=== PATIENT | male | born 1960 | race Caucasian/White ===

== ENCOUNTER 2024-06-11 07:32 | Emergency (ER) | payer SELFPAY ==
[2024-06-11] VITALS (12 sets, daily range): BP systolic 159–203; BP diastolic 87–120; BMI 32.6
--- NOTE | 2024-06-11 07:43 | ED.GENMED ---
History of Present Illness
General
Chief Complaint: Flank Pain
Time Seen by Provider: 06/11/24 07:43
History of Present Illness
History of Present Illness:
TIME OF INITIAL ENCOUNTER: 7:45 AM
HPI: The patient awoke with right flank pain that started around 4 hours ago. He has history of kidney stones. Prior kidney stones are always on the left side. He has had gross hematuria once in the past and does have gross hematuria today. He
has had no fevers.
EXAM:
GENERAL: Well appearing but appears somewhat uncomfortable
HEENT: Moist oral mucosa
CARDIOVASCULAR: No murmurs, normal heart rate, regular rhythm, No chest wall tenderness
PULMONARY: No respiratory distress, breath sounds are clear and equal
ABDOMEN: Soft with no peritoneal signs, no tenderness, mild right CVA tenderness
NEUROLOGIC: Excellent strength all extremities, no coordination deficits
PSYCHIATRIC: Appropriate mental status, normal insight and judgement
EXTREMITIES: Nontender, no edema, moves all extremities equally
SKIN: No rash, no lesions
NUMBER AND COMPLEXITY OF PROBLEMS ADDRESSED AT THE ENCOUNTER
� Chronic conditions affecting care: Kidney stones, has had migraines
� Acute Exacerbation and/or Progression of Chronic Illness: This is an acute problem
� Differential Diagnosis includes: Ureteral stone/colic, UTI, pyelonephritis
AMOUNT AND/OR COMPLEXITY OF DATA TO BE REVIEWED AND ANALYZED
� I performed an independent evaluation of and my interpretation is:
EKG:
CT: CT shows a distal right ureteral stone measuring 5 mm
X-rays:
Laboratory Studies: White count 10.7, creatinine 1.5/GFR 52
Other:
� Review of other/old records: No old records available for review in [facility].
� Clinical information was obtained by an independent historian: I spoke to at bedside
� Prescriptions/Medications Considered but not given:
� Further testing considered but not performed:
RISK OF COMPLICATIONS AND/OR MORBIDITY OR MORTALITY OF PATIENT MANAGEMENT
� Social determinants of health affecting care: Lives at home
� Discussion with other providers: Notify Dr. Dial agrees with close outpatient follow-up
� Escalation of care including admission/observation vs risk of discharge considered: The patient was given Toradol, Zofran, and fluids initially.
ANY OTHER UPDATES:
10:30 AM: The patient overall felt improved after Toradol given however will limit further NSAIDs as he does has borderline renal insufficiency. 5 mm distal ureteral stone noted. Questionable UTI, will start antibiotics. Will give a dose of
Percocet prior to discharge.
Phy Exam
Physical Exam
Physical Exam:
See HPI
Course
Orders/Labs/Results
Orders:
Orders
06/11/24 07:58
CT Abd/pel Without Iv Or Oral Urgent
Comment:
Reason For Exam: acute R flank pain gross hematuria
0.9% Sodium Chloride 1000 ml [Nss] 1,000 ml IV BOLUS
Ketorolac [Toradol] 15 mg IV NOW STA
Ondansetron Injectable [Zofran] 4 mg IV NOW STA
06/11/24 08:07
Complete Blood Count/With Diff Urgent
Comprehensive Metabolic Panel Urgent
Urinalysis Reflex To Culture Urgent
Date Specimen was Collected: 06/11/24
Time Specimen was Collected: 07:58
Urine Microscopic Reflex Cult Urgent
Urine Culture Urgent
VERONICA Source: U
Specimen Description:
Date Specimen was Collected: 06/11/24
Time Specimen was Collected: 07:58
06/11/24 08:14
HYDROmorphone [Dilaudid] 1 mg IV NOW STA
06/11/24 10:29
Cephalexin Monohydrate [Keflex] 500 mg PO NOW STA
06/11/24 10:54
Oxycodone/Acetaminophen [Percocet 5/325] 2 tablet PO NOW STA
Abnormal Lab Results
06/11/24
08:07
Abs Immat Gran (auto) 0.1 H 10^3/uL
(0-0.05)
Absolute Neuts (auto) 7.0 H 10^3/uL
(1.4-6.5)
Absolute Monos (auto) 1.1 H 10^3/uL
(0.1-0.6)
Monocytes % 10.2 H %
(1.7-9.3)
Creatinine 1.5 H mg/dL
(0.7-1.3)
Glucose 128 H mg/dl
(70-99)
Urine Ketones Trace A
(Negative)
Ur Occult Blood Reflex 4+ A
(Negative)
Urine Nitrite (Reflex) Positive A
(Negative)
Urine Bilirubin 1+ A
(Negative)
Leukocyte Esterase Rfl 1+ A
(Negative)
Urine RBC >100 A /HPF
(0-2)
Urine Bacteria (Reflex) Moderate A
(Negative)
Urine Albumin (Reflex) 2+ A
(Neg - Trace)
06/11/24 08:07
06/11/24 08:07
Vital Signs
Initial and Last Documented VS:
Initial Vital Signs
Temp Pulse Resp BP Pulse Ox
36.5 C 93 16 203/120 98
06/11/24 07:39 06/11/24 07:39 06/11/24 07:39 06/11/24 07:39 06/11/24 07:39
Last Documented Vital Signs
Temp Pulse Resp BP Pulse Ox
36.4 C 77 16 162/87 94
06/11/24 08:14 06/11/24 09:15 06/11/24 09:15 06/11/24 09:15 06/11/24 09:15
*Critical Care Note
Total Time (30-74mins, 75-104mins- exclusive of procedures): Not Applicable
ED Attending Note
-
Portions of this chart may have been created with voice recognition software.� Occasional wrong word or��sound alike� substitutions may have occurred due to the inherent limitations of voice recognition software.
Discharge Plan
Departure
Patient Disposition: Home (Routine Discharge)
Date of Disposition: 06/11/24
Time of Disposition: 10:32
Patient with high blood pressure during this ER visit?: Yes
Discharge Problem:
Left ureteral stone
Instructions: Kidney Stones (DC), How to Strain Your Urine, BLOOD PRESSURE, Narcotic Pain Medication
Prescriptions:
New
oxycodone-acetaminophen [Percocet] 5-325 mg tablet
1 - 2 tab PO Q6HPRN PRN (Reason: pain) Qty: 14 0RF
ondansetron HCl 4 mg tablet
4 mg PO Q8H PRN (Reason: nausea and vomiting) Qty: 14 0RF
tamsulosin [Flomax] 0.4 mg capsule
0.4 mg PO DAILY Qty: 14 0RF
cephalexin 500 mg tablet
500 mg PO TID Qty: 21 0RF
Referrals:
NONE,* [Family Provider] -
Activity Restrictions/Additional Instructions:
You have a 5 mm stone in the far down down part of your right ureter. You do have a lot of blood on the urinalysis which is common with kidney stones. There is only questionable if any sign of infection. I am placing you on antibiotics in case
there truly is infection. Urine culture pending. Return here if developing fevers. I notified Dr. Dial, urologist�please follow-up with their office and call them on Thursday. Your kidney function is borderline impaired therefore limit the
amount of [id number] Motrin. I sent a prescription for narcotic to your pharmacy, nausea medicine, Flomax which may help promote stone passage, and antibiotic. If you take the narcotic, I recommend taking some like [id number] MiraLAX
to prevent constipation. Your blood pressure was very high when he first came in here which is partially related the pain however it remains elevated. I strongly recommend you follow-up with primary care doctor for reassessment.
Interventions
Interventions:
*Risk Screen - Suicide Last Done: 06/11/24 07:39
*General Assessment Last Done: 06/11/24 08:14
*Neglect/Abuse Screening Last Done: 06/11/24 07:39
ED- Fall Risk Assessment Last Done: 06/11/24 08:14
*ED COVID-19 Vaccine History Last Done: 06/11/24 08:14
CZ-Sjgiuc-Xulkyeohxp Assessment Last Done: 06/11/24 08:14
ED-Male Genitourinary Assessment Last Done: 06/11/24 08:14
Discharge Date and Time
Print Language: KOREAN
[2024-06-11] MEDS: NSS 1000 IV (08:09)
[2024-06-11] MEDS: TORADOL 15 MG IV (08:10)
[2024-06-11] MEDS: ZOFRAN 4 MG IV (08:10)
[2024-06-11 08:14] LABS: % Basophils 0.7 % (0-2); % Eosinophils 1.4 % (0-6); % Immature Granulocytes 0.5 % (0-0.5); % Monocytes 10.2 % (1.7-9.3); % Neutrophils 65.2 % (42.2-75.2); Absolute Basophils 0.1 10^3/uL (0-0.2); Absolute Eosinophils 0.2 10^3/uL (0-0.7); Absolute Immature Granulocytes 0.1 10^3/uL (0-0.05); Absolute Lymphocytes 2.4 10^3/uL (1.2-3.4); Absolute Monocytes 1.1 10^3/uL (0.1-0.6); Hematocrit 44.5 % (39.0-52.0); Hemoglobin 14.8 g/dL (13.0-18.0); Mean Corp Hgb Conc. 33.3 g/dL (33.0-37.0); Mean Corpuscular Hgb 28.4 pg (27.0-31.0); Mean Corpuscular Volume 85.2 fL (80.0-94.0); Mean Platelet Volume 9.7 fL (7.4-10.4); Nucleated Red Blood Cells % 0 % (-); Platelet Count 240 10^3/uL (130-400); Red Blood Cell Count 5.22 10^6/uL (4.70-6.10); Red Cell Dist. Width 13.1 % (11.5-14.5); White Blood Cell Count 10.7 10^3/uL (4.8-10.8)
[2024-06-11 08:38] LABS: ALT (SGPT) 19 U/L (0-50); AST (SGOT) 22 U/L (17-59); Albumin 4.8 g/dl (3.5-5.0); Alkaline Phosphatase 80 U/L (38-126); Blood Urea Nitrogen 20 mg/dl (9-20); Calcium 9.1 mg/dl (8.4-10.2); Carbon Dioxide 28 mmol/L (22-30); Chloride 101 mmol/L (98-107); Estimated Creatinine Clearance 65 ml/min; Glucose 128 mg/dl (70-99); Potassium 4.1 mmol/L (3.5-5.1); Sodium 140 mmol/L (135-145); Total Protein 7.7 g/dl (6.3-8.2); eGFR 52.31
[2024-06-11 08:40] LABS: Urine Albumin 2+ (Neg - Trace); Urine Bilirubin 1+ (Negative); Urine Character Very Cloudy (Clear); Urine Color Red; Urine Glucose Negative (Negative); Urine Ketone Trace (Negative); Urine Leukocyte 1+ (Negative); Urine Nitrite Positive (Negative); Urine Occult Blood 4+ (Negative); Urine Specific Gravity 1.025 (<1.030); Urine Urobilinogen 1+ (Neg - 1+)
[2024-06-11 08:55] LABS: Urine Bacteria Moderate (Negative); Urine Red Blood Cell >100 /HPF (0-2); Urine Squamous Cell None seen /LPF (Few); Urine White Cell 0-2 /HPF (0-5)
[2024-06-11] MEDS: KEFLEX 500 MG PO (10:51)
[2024-06-11] MEDS: PERCOCET 5/325 2 TABLET PO (10:57)
== END 2024-06-11 11:05 | disposition home or self-care (01) ==
LOC: EMR 07:32
PROVIDERS: EMERGENCY PHYSICIAN Emergency Medicine
DX: N20.1 Calculus of ureter (principal); R31.0 Gross hematuria; Z87.442 Personal history of urinary calculi
CPT/HCPCS: 99284; 96374; 96375; 96361; 74176; 80053; 81003; 81015; 85025; 87086

== ENCOUNTER 2024-07-12 15:25 | Emergency (ER) | payer BC, SELFPAY ==
[2024-07-12 15:44] VITALS: BP 163/108
[2024-07-12 16:06] LABS: % Basophils 0.7 % (0-2); % Eosinophils 2.1 % (0-6); % Immature Granulocytes 0.3 % (0-0.5); % Lymphocytes 38.4 % (20.5-51.1); % Monocytes 8.7 % (1.7-9.3); % Neutrophils 49.8 % (42.2-75.2); Absolute Basophils 0.1 10^3/uL (0-0.2); Absolute Eosinophils 0.1 10^3/uL (0-0.7); Absolute Lymphocytes 2.6 10^3/uL (1.2-3.4); Absolute Monocytes 0.6 10^3/uL (0.1-0.6); Absolute Neutrophils 3.4 10^3/uL (1.4-6.5); Hematocrit 43.1 % (39.0-52.0); Hemoglobin 14.3 g/dL (13.0-18.0); Mean Corp Hgb Conc. 33.2 g/dL (33.0-37.0); Mean Corpuscular Hgb 28.5 pg (27.0-31.0); Mean Corpuscular Volume 85.9 fL (80.0-94.0); Mean Platelet Volume 9.3 fL (7.4-10.4); Nucleated Red Blood Cells % 0 % (-); Platelet Count 222 10^3/uL (130-400); Red Blood Cell Count 5.02 10^6/uL (4.70-6.10); Red Cell Dist. Width 12.7 % (11.5-14.5); White Blood Cell Count 6.8 10^3/uL (4.8-10.8)
[2024-07-12 16:16] LABS: ALT (SGPT) 14 U/L (0-50); AST (SGOT) 17 U/L (17-59); Albumin 4.2 g/dl (3.5-5.0); Alkaline Phosphatase 70 U/L (38-126); Blood Urea Nitrogen 14 mg/dl (9-20); Calcium 9.7 mg/dl (8.4-10.2); Carbon Dioxide 31 mmol/L (22-30); Chloride 102 mmol/L (98-107); Glucose 111 mg/dl (70-99); Potassium 4.1 mmol/L (3.5-5.1); Sodium 139 mmol/L (135-145); Total Bilirubin 1.1 mg/dl (0.2-1.3); Total Protein 7.2 g/dl (6.3-8.2); eGFR > 60.00
--- NOTE | 2024-07-12 17:02 | ED.GENMED ---
History of Present Illness
General
Chief Complaint: Blood Pressure Problem
Time Seen by Provider: 07/12/24 16:57
History of Present Illness
History of Present Illness:
64-year-old male presents the emergency department for evaluation of elevated blood pressure. He states he has noted it to be elevated since the ER visit 1 month ago, purchased a home blood pressure monitor and is elevated but has not followed up
with a primary care physician. He denies any complaints at this time. Specifically denies headache, chest pain, or shortness of breath.
Review of Systems
Review of Systems
Allergies reviewed?: Yes
All Other Systems: ROS reviewed and negative except as documented in HPI and ROS
Phy Exam
Physical Exam
Physical Exam:
GEN: Well appearing, NAD, WDWN
HEENT: Oral mucosa moist, no scleral icterus
Cardiac: Regular rate
Lung: No respiratory distress, no tachypnea
MSK: No gross deformity or injuries
Skin: Good color, no pallor or jaundice, no rashes
Neuro: AO x3, moves all extremities freely
Psych: Calm, cooperative
Course
Orders/Labs/Results
Orders:
Orders
07/12/24 15:48
EKG [Electrocardiogram (*1)] Urgent
Reason for Study: Hypertension, Benign
EKG- Treatment ONCE
07/12/24 15:54
Complete Blood Count/With Diff Urgent
Comprehensive Metabolic Panel Urgent
Abnormal Lab Results
07/12/24
15:54
Carbon Dioxide 31 H mmol/L
(22-30)
Glucose 111 H mg/dl
(70-99)
07/12/24 15:54
07/12/24 15:54
Vital Signs
Initial and Last Documented VS:
Initial Vital Signs
Temp Pulse Resp BP Pulse Ox
98.1 F 71 18 163/108 98
07/12/24 15:44 07/12/24 15:44 07/12/24 15:44 07/12/24 15:44 07/12/24 15:44
Last Documented Vital Signs
Temp Pulse Resp BP Pulse Ox
98.1 F 71 18 163/108 98
07/12/24 15:44 07/12/24 15:44 07/12/24 15:44 07/12/24 15:44 07/12/24 15:44
MDM/Problems Addressed
MDM/Problems Addressed:
Patient presenting with asymptomatic hypertension, will start 5 mg amlodipine and recommend outpatient primary care follow-up
*Critical Care Note
Total Time (30-74mins, 75-104mins- exclusive of procedures): Not Applicable
ED Attending Note
-
Portions of this chart may have been created with voice recognition software.� Occasional wrong word or��sound alike� substitutions may have occurred due to the inherent limitations of voice recognition software.
Discharge Plan
Departure
Patient Disposition: Home (Routine Discharge)
Date of Disposition: 07/12/24
Time of Disposition: 17:02
Patient with high blood pressure during this ER visit?: Yes
Discharge Problem:
Asymptomatic hypertension
Instructions: High Blood Pressure (DC)
Prescriptions:
New
amlodipine 5 mg tablet
5 mg PO DAILY Qty: 30 0RF
No Action
oxycodone-acetaminophen [Percocet] 5-325 mg tablet
1 - 2 tab PO Q6HPRN PRN (Reason: pain) Qty: 14 0RF
ondansetron HCl 4 mg tablet
4 mg PO Q8H PRN (Reason: nausea and vomiting) Qty: 14 0RF
tamsulosin [Flomax] 0.4 mg capsule
0.4 mg PO DAILY Qty: 14 0RF
cephalexin 500 mg tablet
500 mg PO TID Qty: 21 0RF
Activity Restrictions/Additional Instructions:
[facility]
[address]
[place] [address]
[phone]
Interventions
Interventions:
*Risk Screen - Suicide Last Done: 07/12/24 15:44
*General Assessment Last Done: 07/12/24 15:44
*ED COVID-19 Vaccine History Last Done: 07/12/24 15:44
*Nursing Disposition Last Done: 07/12/24 17:38
Discharge Date and Time
Discharge Date/Time: 07/12/24 17:38
Print Language: PASHTO
== END 2024-07-12 17:38 | disposition home or self-care (01) ==
LOC: EMR 15:25
PROVIDERS: EMERGENCY PHYSICIAN Emergency Medicine
DX: I10 Essential (primary) hypertension (principal); Z88.8 Allergy status to other drugs, medicaments and biological substances
CPT/HCPCS: 99283; 80053; 85025; 93005